=== PATIENT | female | born 2000 | race Caucasian/White ===

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

== ENCOUNTER 2021-11-17 23:18 | Emergency (ER) | payer MEDICAID ==
[~2021-11-17] VITALS: Ht 157 cm; Wt 61.5 kg
[~2021-11-17 23:18] MED LIST changes: +DOCU-239 PO; +LABE200T10 PO; -LABE200T7 PO
[2021-11-17 23:41] LABS: BILIRUBIN,URINE NEGATIVE (NEGATIVE); CLARITY,URINE CLEAR; COLOR,URINE ORANGE; GLUCOSE, URINE (UA) NEGATIVE (NEGATIVE); KETONES,URINE NEGATIVE (NEGATIVE); LEUKOCYTE ESTERASE ,URINE 2+ (NEGATIVE); NITRITE,URINE NEGATIVE (NEGATIVE); PROTEIN,URINE 1+ (NEGATIVE)
[2021-11-17 23:42] LABS: BASOPHILS % (AUTO) 0 % (0-10); EOSINOPHILS # (AUTO) 0.2 10^3/uL (0.0-0.3); EOSINOPHILS % (AUTO) 2 % (0-10); HEMATOCRIT 39 % (35-52); HEMOGLOBIN 11.8 g/dL (11.5-16.0); LYMPHOCYTES # (AUTO) 2.9 10^3/uL (1.0-4.0); LYMPHOCYTES % (AUTO) 26 % (12-44); MEAN CORPUSCULAR HEMOGLOBIN 24 pg (25-34); MEAN CORPUSCULAR HGB CONC 31 g/dL (32-36); MEAN CORPUSCULAR VOLUME 79 fL (80-99); MEAN PLATELET VOLUME 10.9 fL (9.0-12.2); MONOCYTES # (AUTO) 0.8 10^3/uL (0.0-1.0); MONOCYTES % (AUTO) 7 % (0-12); NEUTROPHILS # (AUTO) 7.2 10^3/uL (1.8-7.8); NEUTROPHILS % (AUTO) 64 % (42-75); PLATELET COUNT 269 10^3/uL (130-400); WHITE BLOOD COUNT 11.2 10^3/uL (4.3-11.0)
--- NOTE | 2021-11-17 23:44 | ED GU-Female ---
General Chief Complaint: OB > 20 WEEKS Stated Complaint: MONTH 1/2 PREG,VAG BLEEDING,CRAMPS,LOWER BACK PAIN Source: patient History of Present Illness Date Seen by Provider: Nov 17, 2021 Time Seen by Provider: 23:30 Initial Comments PT ARRIVES VIA POV FROM HOME PT STATES SHE IS --LMP 09/11/21, WITH + HOME TEST----9 WEEKS BY LMP. HAS NOT SEEN ANYONE FOR THIS AND DOES NOT HAVE ANY APPOINTMENTS SCHEDULED STATES SHE WORKS AT [employer]--STARTED WORKING THERE IN JULY OF THIS YEAR. ON THURSDAY, SHE STARTED DOING A DIFFERENT JOB THERE--LIFTING 30# PIECES OF PORK BELLY--DID THIS FOR 30 MINUTES ON THURSDAY AND THURSDAY BEGAN HAVING LOW BACK PAIN AFTER DOING THIS ON THURSDAY AND HAD SOME BRIEF SHARP LOW ABDOMINAL PAINS SOON SHE FINISHED DOING THIS ON THURSDAY WELL HAS HAD CONTINUED LOWER BACK PAIN SINCE THEN HAD NOT HAD ANY LOWER ABDOMINAL PAIN/CRAMPING UNTIL TONIGHT--BEGAN ABOUT 30 MINUTES AGO, AND SHE STARTED HAVING VAGINAL BLEEDING 30 MINUTES AGO AND RUSHED HERE SHE HAS NOT USED ANY PADS YET--PUT ON HER FIRST PAD, PRIOR TO ARRIVAL, AND THERE IS NO BLOOD ON IT. NO URINARY SYMPTOMS + NAUSEA, NO VOMITING HAD NORMAL BM TODAY NO VAGINAL DISCHARGE PRIOR TO THE BLEEDING PT IS AB 0--FIRST PREGANCY WAS FOR HTN, AND HAD REPEAT AND PRE-ECLAMPSIA WITH THAT WELL. NO CHRONIC MEDICAL PROBLEMS PCP: [facility]: DR. FORDE Allergies and Home Medications Allergies Coded Allergies: No Known Drug Allergies (Unverified , 09/08/18) Patient Home Medication List Home Medication List Reviewed: Yes Docusate Sodium (Dok) 100 Mg Capsule, 100 MG PO BID PRN for CONSTIPATION-1ST LINE Prescribed by: RODDY FORDE on 04/05/201915 Doxylamine/Pyridoxine HCl (Edmundo Amezcua 10-10 mg Tablet) 10 Mg-10 Mg Tablet., 2 EACH PO HS Prescribed by: KENDELL MATHEWS on 11/18/21 0011 Hydrocodone Bit/Acetaminophen (HYDROcodone/APAP 5 MG/325 MG TAB) 1 Tab Tab, 1-2 TAB PO Q6HR PRN for PAIN-MODERATE (5-7) Prescribed by: RODDY FORDE on 04/05/201916 Ibuprofen (Ibu) 600 Mg Tablet, 600 MG PO Q6HR Prescribed by: RODDY FORDE on 04/05/201915 Iron (Iron) 18 Mg Tablet, 18 MG PO DAILY, (Reported) Entered as Reported by: BEA RAMÍREZ on 03/23/20 165 Nitrofurantoin Monohyd/M-Cryst (Macrobid 100 mg Capsule) 100 Mg Capsule, 1 TAB PO BID Prescribed by: KENDELL MATHEWS on 11/18/2110 Pgs077/Iron Fumarate/FA/Dss ( 19 Tablet) 1 Each Tablet, 1 EACH PO DAILY, (Reported) Entered as Reported by: ARIC STONER on 09/08/182037 Vit W-Ca,Fe,FA(<1 mg) ( Formula) 28 Mg Iron-800 Mcg Tablet, 1 EACH PO DAILY Prescribed by: KENDELL MATHEWS on 11/18/2110 Review of Systems Review of Systems Constitutional: no symptoms reported Respiratory: no symptoms reported Cardiovascular: no symptoms reported Gastrointestinal: see HPI Genitourinary: see HPI : Yes LMP: Sep 11, 2021 Musculoskeletal: see HPI Skin: no symptoms reported Psychiatric/Neurological: No Symptoms Reported Endocrine: No Symptoms Reported Hematologic/Lymphatic: No Symptoms Reported Past Iderzvl-Lcomty-Fpwbkz Hx Patient Social History Tobacco Use?: No Smoking Status: Never a Smoker Smokeless Tobacco Frequency: Never a User Use of E-Cig and/or Vaping dev: No Use of E-Cig and/or Vaping Christian: Never a User Substance use?: No Alcohol Use?: No Seasonal Allergies Seasonal Allergies: No Past Medical History Surgeries: Yes ( X 2) Section Respiratory: No Currently Using CPAP: No Currently Using BIPAP: No Cardiac: Yes ( INDUCED HTN/PRE-ECLAMPSIA) Neurological: No : Yes Last Menstrual Period: Sep 11, 2021 Hx : 3 Hx Para: 2 Hx Total # of Abortions (Sp): 0 Reproductive Disorders: No Genitourinary: No Gastrointestinal: No Musculoskeletal: No Endocrine: No HEENT: No Cancer: No Psychosocial: No Integumentary: No Blood Disorders: No Family Medical History Asthma G8 BROTHER FH: lupus G8 SISTER Hypertension 19 MOTHER Physical Exam Vital Signs Vital Signs - First Documented 11/17/21 23:34 Temp 36.9 Pulse 92 Resp 20 B/P (MAP) 128/83 (98) Pulse Ox 98 O2 Delivery Room Air Capillary Refill : Height, Weight, BMI Height: 5'2.00" Weight: 176lbs. 0.0oz. [id number]; 32.69 BMI Method: General Appearance: WD/WN, no apparent distress Cardiovascular: regular rate, rhythm, no murmur Respiratory: normal breath sounds, no respiratory distress, no accessory muscle use Gastrointestinal: normal bowel sounds, non tender, soft, no organomegaly Pelvic: normal external exam, normal adnexa, no cerv. motion tender, no masses; No lesions, No tender adnexa, No tender uterus; vaginal bleeding (MILD AMOUNT OF BLOOD IN CANAL. NO CLOTS, NO ACTIVE BLEEDING FROM CERVIX AT THIS TIME. CERVIX IS CLOSED) Back: no CVA tenderness Extremities: normal range of motion, non-tender, normal inspection, no pedal edema, no calf tenderness Neurologic/Psychiatric: security director II-XII nml as tested, no motor/sensory deficits, alert, normal mood/affect, oriented x 3 Skin: normal color, warm/dry Progress/Results/Core Measures Suspected Sepsis SIRS Temperature: Pulse: Respiratory Rate: Laboratory Tests 11/17/21 23:32: White Blood Count 11.2H Blood Pressure / Mean: Laboratory Tests 11/17/21 23:32: Platelet Count 269 Results/Orders Lab Results Laboratory Tests Test 11/17/21 23:32 Range/Units White Blood Count 11.2 H 4.3-11.0 10^3/uL Red Blood Count 4.89 3.80-5.11 10^6/uL Hemoglobin 11.8 11.5-16.0 g/dL Hematocrit 39 35-52 % Mean Corpuscular Volume 79 L 80-99 fL Mean Corpuscular Hemoglobin 24 L 25-34 pg Mean Corpuscular Hemoglobin Concent 31 L 32-36 g/dL Red Cell Distribution Width 14.8 H 10.0-14.5 % Platelet Count 269 130-400 10^3/uL Mean Platelet Volume 10.9 9.0-12.2 fL Immature Granulocyte % (Auto) 0 % Neutrophils (%) (Auto) 64 42-75 % Lymphocytes (%) (Auto) 26 12-44 % Monocytes (%) (Auto) 7 0-12 % Eosinophils (%) (Auto) 2 0-10 % Basophils (%) (Auto) 0 0-10 % Neutrophils # (Auto) 7.2 1.8-7.8 10^3/uL Lymphocytes # (Auto) 2.9 1.0-4.0 10^3/uL Monocytes # (Auto) 0.8 0.0-1.0 10^3/uL Eosinophils # (Auto) 0.2 0.0-0.3 10^3/uL Basophils # (Auto) 0.0 0.0-0.1 10^3/uL Immature Granulocyte # (Auto) 0.1 0.0-0.1 10^3/uL Urine Color ORANGE Urine Clarity CLEAR Urine pH 7.0 5-9 Urine Specific [place] 1.020 1.016-1.022 Urine Protein 1+ H NEGATIVE Urine Glucose (UA) NEGATIVE NEGATIVE Urine Ketones NEGATIVE NEGATIVE Urine Nitrite NEGATIVE NEGATIVE Urine Bilirubin NEGATIVE NEGATIVE Urine Urobilinogen 0.2 < = 1.0 MG/DL Urine Leukocyte Esterase 2+ H NEGATIVE Urine RBC (Auto) 3+ H NEGATIVE Urine RBC 50-100 H /HPF Urine WBC 10-25 H /HPF Urine Squamous Epithelial Cells 2-5 /HPF Urine Crystals NONE /LPF Urine Bacteria FEW H /HPF Urine Casts NONE /LPF Urine Mucus NEGATIVE /LPF Urine Culture Indicated YES Human Chorionic Gonadotropin, Quant 5051 H <5 MIU/ML My Orders Orders - KENDELL MATHEWS DO Ed Iv/Invasive Line Start (11/17/21 23:27) Monitor-Rhythm Ecg Trace Only (11/17/21 23:27) Cbc With Automated Diff (11/17/21 23:27) Hcg,Quantitative (11/17/21 23:27) Urine Bedside (11/17/21 23:27) Ua Culture If Indicated (11/17/21 23:27) Urine Culture (11/17/21 23:32) Rx-Nitrofurantoin Addison (Rx-Macrobid) (11/18/21 00:13) Rx-Nitrofurantoin [place]ison (Rx-Macrobid) (11/18/21 00:16) Vital Signs/I&O 11/17/21 11/18/21 23:34 00:20 Temp 36.9 36.9 Pulse 92 82 Resp 20 18 B/P (MAP) 128/83 (98) 117/80 Pulse Ox 98 99 O2 Delivery Room Air Room Air Capillary Refill : Progress Note : Progress Note BLOOD TYPE IS AB+ DID NOT SOAK ANY PADS DURING ER STAY VITALS STABLE NO CRAMPING OR PAIN DURING ER STAY ANTICIPATED COURSE AND RETURN PRECAUTIONS DISCUSSED WITH PT Departure Impression Primary Impression: Threatened miscarriage in early Additional Impression: UTI IN EARLY Disposition: 01 HOME, SELF-CARE Condition: Stable Departure-Patient Inst. Decision time for Depature: 00:10 Referrals: RODDY FORDE DO (PCP/Family) Primary Care Physician Patient Instructions: Bleeding in Early (DC), Urinary Tract Infection, Child (DC) Add. Discharge Instructions: NOTHING IN VAGINA--NO TAMPONS, DOUCHING OR INTERCOURSE LOTS OF CLEAR LIQUIDS--WATER, BROTH, JELLO, GATORADE TYLENOL NEEDED FOR PAIN FOLLOW UP WITH [facility] T[facility]ROW FOR FURTHER CARE RETURN TO ER IF YOU ARE SOAKING MORE THAN 1 MAXI PAD AN HOUR, OR YOUR PAIN BECOMES MUCH WORSE All discharge instructions reviewed with patient and/or family. Voiced understanding. Scripts Doxylamine/Pyridoxine HCl (Edmundo Amezcua 10-10 mg Tablet) 10 Mg-10 Mg Tablet.dr 2 EACH PO HS, #60 TAB Prov: KENDELL MATHEWS DO 11/18/21 Vit W-Ca,Fe,FA(<1 mg) ( Formula) 28 Mg Iron-800 Mcg Tablet 1 EACH PO DAILY, #90 TAB Prov: KENDELL MATHEWS DO 11/18/21 Nitrofurantoin Monohyd/M-Cryst (Macrobid 100 mg Capsule) 100 Mg Capsule 1 TAB PO BID, #20 CAP Prov: KENDELL MATHEWS DO 11/18/21 KENDELL MATHEWS DO Nov 17, 2021 23:44
[2021-11-17 23:49] LABS: BACTERIA,URINE FEW /HPF; RBC,URINE 50-100 /HPF
[2021-11-18] MEDS ORDERED: NITR-65 PO (00:11)
[2021-11-18] MEDS ORDERED: DOXY1TAB3 PO (00:11)
[2021-11-18] MEDS ORDERED: PREN-8 PO (00:11)
[2021-11-18] MEDS ORDERED: RX-NITROFURANTOIN 100 MG (MACROBID) CAP PPK#2 PO STA (00:13)
[2021-11-18] MEDS ORDERED: RX-NITROFURANTOIN 100 MG (MACROBID) CAP PPK#2 PO ONE (00:16)
[2021-11-18 00:20] VITALS: BP 117/80
[2021-11-19] MEDS ORDERED: IBUP-1780 PO (16:01)
== END 2021-11-18 00:20 | disposition home or self-care (01) ==
LOC: EDUNIT# 23:18 → ER 23:21
DX: O20.0 Threatened abortion (principal); O23.41 Unspecified infection of urinary tract in pregnancy, first trimester; N39.0 Urinary tract infection, site not specified; Z3A.09 9 weeks gestation of pregnancy; Z28.310 Unvaccinated for COVID-19
CPT/HCPCS: 36415; 81000; 84702; 84703; 85025; 87088

== ENCOUNTER 2021-11-19 11:00 | Emergency (ER) | payer MEDICAID ==
[~2021-11-19] VITALS: Ht 157.5 cm; Wt 61.2 kg
[~2021-11-19 11:00] MED LIST changes: +DOXY1TAB3 PO; +NITR-65 PO; +PREN-8 PO
[2021-11-19 11:24] LABS: BASOPHILS % (AUTO) 0 % (0-10); EOSINOPHILS % (AUTO) 0 % (0-10); HEMATOCRIT 37 % (35-52); HEMOGLOBIN 11.4 g/dL (11.5-16.0); LYMPHOCYTES # (AUTO) 1.2 10^3/uL (1.0-4.0); LYMPHOCYTES % (AUTO) 9 % (12-44); MEAN CORPUSCULAR HEMOGLOBIN 24 pg (25-34); MEAN CORPUSCULAR HGB CONC 31 g/dL (32-36); MEAN CORPUSCULAR VOLUME 78 fL (80-99); MONOCYTES # (AUTO) 0.7 10^3/uL (0.0-1.0); MONOCYTES % (AUTO) 5 % (0-12); NEUTROPHILS # (AUTO) 11.4 10^3/uL (1.8-7.8); NEUTROPHILS % (AUTO) 85 % (42-75); PLATELET COUNT 245 10^3/uL (130-400); WHITE BLOOD COUNT 13.4 10^3/uL (4.3-11.0)
[2021-11-19] MEDS ORDERED: fentaNYL INJ 100 MCG/2 ML AMP IVP ONE (11:30)
[2021-11-19 11:37] LABS: BILIRUBIN,URINE NEGATIVE (NEGATIVE); CLARITY,URINE CLEAR; COLOR,URINE YELLOW; GLUCOSE, URINE (UA) NEGATIVE (NEGATIVE); KETONES,URINE NEGATIVE (NEGATIVE); LEUKOCYTE ESTERASE ,URINE NEGATIVE (NEGATIVE); NITRITE,URINE NEGATIVE (NEGATIVE); PROTEIN,URINE 1+ (NEGATIVE)
[2021-11-19 11:40] LABS: ALBUMIN 4.5 GM/DL (3.2-4.5); POTASSIUM 3.4 MMOL/L (3.6-5.0)
[2021-11-19 11:41] LABS: CALCIUM 9.2 MG/DL (8.5-10.1)
[2021-11-19 11:42] LABS: TOTAL PROTEIN 7.9 GM/DL (6.4-8.2)
[2021-11-19 11:44] LABS: BILIRUBIN,TOTAL 0.4 MG/DL (0.1-1.0)
[2021-11-19 11:46] LABS: CREATININE SERUM 0.56 MG/DL (0.60-1.30)
[2021-11-19 11:48] LABS: BACTERIA,URINE TRACE /HPF; RBC,URINE TNTC /HPF
--- NOTE | 2021-11-19 11:58 | ED Abdominal Pain ---
General Chief Complaint: OB < 20 WEEKS Stated Complaint: ABD PAIN Nursing Triage Note: PT AMB TO RM 9 WITH COMPLAINT OF LOWER ABD PAIN AND MISCARRIAGE. STATES WENT TO CLINIC TODAY AND HAD ULTRASOUND AND CONFIRMED SHE WAS MISCARRYING AND THERE WAS NOT HEARTRATE. Source of Information: Patient Exam Limitations: No Limitations History of Present Illness Date Seen by Provider: Nov 19, 2021 Time Seen by Provider: 11:54 Initial Comments This is a 21 yo female who presented to the ER via POV with c/o abdominal Allergies and Home Medications Allergies Coded Allergies: No Known Drug Allergies (Unverified , 09/08/18) Patient Home Medication List Docusate Sodium (Dok) 100 Mg Capsule, 100 MG PO BID PRN for CONSTIPATION-1ST LINE Prescribed by: RODDY FORDE on 04/05/201915 Doxylamine/Pyridoxine HCl (Diclegis Dr 10-10 mg Tablet) 10 Mg-10 Mg Tablet.dr, 2 EACH PO HS Prescribed by: KENDELL MATHEWS on 11/18/2110 Hydrocodone Bit/Acetaminophen (HYDROcodone/APAP 5 MG/325 MG TAB) 1 Tab Tab, 1-2 TAB PO Q6HR PRN for PAIN-MODERATE (5-7) Prescribed by: RODDY FORDE on 04/05/201916 Ibuprofen (Ibu) 600 Mg Tablet, 600 MG PO Q6HR Prescribed by: RODDY FORDE on 04/05/201915 Iron (Iron) 18 Mg Tablet, 18 MG PO DAILY, (Reported) Entered as Reported by: BEA RAMÍREZ on 03/23/20 165 Nitrofurantoin Monohyd/M-Cryst (Macrobid 100 mg Capsule) 100 Mg Capsule, 1 TAB PO BID Prescribed by: KENDELL MATHEWS on 11/18/2110 [id number]/Iron Fumarate/FA/Dss ( 19 Tablet) 1 Each Tablet, 1 EACH PO DAILY, (Reported) Entered as Reported by: ARIC STONER on 09/08/182037 Vit W-Ca,Fe,FA(<1 mg) ( Formula) 28 Mg Iron-800 Mcg Tablet, 1 EACH PO DAILY Prescribed by: KENDELL MATHEWS on 11/18/2110 Past Clrjbpy-Hskjow-Ltrmeq Hx Patient Social History Tobacco Use?: No Use of E-Cig and/or Vaping dev: No Substance use?: No Alcohol Use?: No Pt feels they are or have been: No Immunizations Up To Date First/Initial COVID19 Vaccinat: N/A Second COVID19 Vaccination Giovani: N/A Third COVID19 Vaccination Date: N/A Seasonal Allergies Seasonal Allergies: No Past Medical History Surgery/Hospitalization HX: HX OF HTN Surgeries: Yes ( X 2) Section Respiratory: No Currently Using CPAP: No Currently Using BIPAP: No Cardiac: Yes ( INDUCED HTN/PRE-ECLAMPSIA) Neurological: No Reproductive Disorders: No Genitourinary: No Gastrointestinal: No Musculoskeletal: No Endocrine: No HEENT: No Cancer: No Psychosocial: No Integumentary: No Blood Disorders: No Family Medical History Asthma G8 BROTHER FH: lupus G8 SISTER Hypertension 19 MOTHER Physical Exam Vital Signs Vital Signs - First Documented 11/19/21 11:07 Pulse 86 Resp 16 B/P (MAP) 146/87 (106) Pulse Ox 99 O2 Delivery Room Air Capillary Refill : Less Than 3 Seconds Height/Weight/BMI Height: 5'2.00" Weight: 176lbs. 0.0oz. 79.775564cp; 24.00 BMI Method: Progress/Results/Core Measures Results/Orders Lab Results Laboratory Tests Test 11/19/21 11:15 11/19/21 11:27 Range/Units White Blood Count 13.4 H 4.3-11.0 10^3/uL Red Blood Count 4.75 3.80-5.11 10^6/uL Hemoglobin 11.4 L 11.5-16.0 g/dL Hematocrit 37 35-52 % Mean Corpuscular Volume 78 L 80-99 fL Mean Corpuscular Hemoglobin 24 L 25-34 pg Mean Corpuscular Hemoglobin Concent 31 L 32-36 g/dL Red Cell Distribution Width 14.6 H 10.0-14.5 % Platelet Count 245 130-400 10^3/uL Mean Platelet Volume 11.0 9.0-12.2 fL Immature Granulocyte % (Auto) 0 % Neutrophils (%) (Auto) 85 H 42-75 % Lymphocytes (%) (Auto) 9 L 12-44 % Monocytes (%) (Auto) 5 0-12 % Eosinophils (%) (Auto) 0 0-10 % Basophils (%) (Auto) 0 0-10 % Neutrophils # (Auto) 11.4 H 1.8-7.8 10^3/uL Lymphocytes # (Auto) 1.2 1.0-4.0 10^3/uL Monocytes # (Auto) 0.7 0.0-1.0 10^3/uL Eosinophils # (Auto) 0.0 0.0-0.3 10^3/uL Basophils # (Auto) 0.0 0.0-0.1 10^3/uL Immature Granulocyte # (Auto) 0.1 0.0-0.1 10^3/uL Sodium Level 139 135-145 MMOL/L Potassium Level 3.4 L 3.6-5.0 MMOL/L Chloride Level 106 98-107 MMOL/L Carbon Dioxide Level 18 L 21-32 MMOL/L Anion Gap 15 H 5-14 MMOL/L Blood Urea Nitrogen 10 7-18 MG/DL Creatinine 0.56 L 0.60-1.30 MG/DL Estimat Glomerular Filtration Rate 134 BUN/Creatinine Ratio 18 Glucose Level 101 70-105 MG/DL Calcium Level 9.2 8.5-10.1 MG/DL Corrected Calcium 8.8 8.5-10.1 MG/DL Total Bilirubin 0.4 0.1-1.0 MG/DL Aspartate Amino Transf (AST/SGOT) 22 5-34 U/L Alanine Aminotransferase (ALT/SGPT) 18 0-55 U/L Alkaline Phosphatase 58 40-136 U/L Total Protein 7.9 6.4-8.2 GM/DL Albumin 4.5 3.2-4.5 GM/DL Human Chorionic Gonadotropin, Quant 2312 H <5 MIU/ML Serum Test, Qualitative POSITIVE NEGATIVE Urine Color YELLOW Urine Clarity CLEAR Urine pH 6.0 5-9 Urine Specific [place] >=1.030 1.016-1.022 Urine Protein 1+ H NEGATIVE Urine Glucose (UA) NEGATIVE NEGATIVE Urine Ketones NEGATIVE NEGATIVE Urine Nitrite NEGATIVE NEGATIVE Urine Bilirubin NEGATIVE NEGATIVE Urine Urobilinogen 0.2 < = 1.0 MG/DL Urine Leukocyte Esterase NEGATIVE NEGATIVE Urine RBC (Auto) 3+ H NEGATIVE Urine RBC TNTC H /HPF Urine WBC NONE /HPF Urine Squamous Epithelial Cells 2-5 /HPF Urine Crystals NONE /LPF Urine Bacteria TRACE /HPF Urine Casts NONE /LPF Urine Mucus MODERATE H /LPF Urine Culture Indicated NO My Orders Orders - DIANA,STORMY D MARINE RAILWAY OPERATOR Ua Culture If Indicated (11/19/21 11:07) Hcg,Qualitative Serum (11/19/21 11:07) Cbc With Automated Diff (11/19/21 11:07) Comprehensive Metabolic Panel (11/19/21 11:07) Fentanyl Inj (Sublimaze Injection) (11/19/21 11:30) Hcg,Quantitative (11/19/21 12:03) Ketorolac Injection (Toradol Injection) (11/19/21 12:45) Us Ob<14 Wks Sngle W/Transvag (11/19/21 13:28) Medications Given in ED Current Medications Medications Dose Ordered Sig/Moises Route Start Time Stop Time Status Last Admin Dose Admin Fentanyl Citrate 50 mcg ONCE ONCE IVP 11/19/21 11:30 11/19/21 11:31 DC 11/19/21 11:36 50 MCG Ketorolac Tromethamine 30 mg ONCE ONCE IVP 11/19/21 12:45 11/19/21 12:46 DC 11/19/21 12:46 30 MG Vital Signs/I&O 11/19/21 11:07 Pulse 86 Resp 16 B/P (MAP) 146/87 (106) Pulse Ox 99 O2 Delivery Room Air Blood Pressure Mean: 106 Departure Impression Primary Impression: Threatened miscarriage in early Disposition: 01 HOME, SELF-CARE Condition: Stable Departure-Patient Inst. Decision time for Depature: 15:59 Referrals: [facility] [place] [facility] [place] (PCP/Family) Primary Care Physician Patient Instructions: Threatened Miscarriage (DC) Add. Discharge Instructions: Plan: 1. Take ibuprofen 800 mg by mouth every 8 hours for pain. 2. May take Tylenol 1000mg by mouth ever 8 hours for pain. 3. keep follow-up with Nia as planned tomorrow. 4. Return to the ER if you develop any increased bleeding, pain, lightheaded ness, dizziness, any other new or concerning symptoms. All discharge instructions reviewed with patient and/or family. Voiced u nderstanding. Scripts Ibuprofen (Ibuprofen) 800 Mg Tablet 800 MG PO Q8H PRN for PAIN, #14 TAB 0 Refills Prov: ADRIEN ORTIZ MARINE RAILWAY OPERATOR 11/19/21 ADRIEN ORTIZ MARINE RAILWAY OPERATOR Nov 19, 2021 11:58
[2021-11-19] MEDS ORDERED: KETOROLAC 30 MG/ML VIAL IVP ONE (12:45)
--- NOTE | 2021-11-19 14:59 | Diagnostic Imaging Report ---
INDICATION: Vaginal bleeding. Cramping. Positive test. COMPARISON: None. TECHNIQUE: Transvaginal sonogram was performed. FINDINGS: Single intrauterine gestational sac is identified and contains a pole. Revere-rump length measures 1.7 cm in length. This is consistent with an 8-week and 1-day-old gestational. Despite this, heartbeat cannot be adequately identified. Yolk sac cannot be adequately identified. Additionally, gestational sac has somewhat irregular appearance. Note is made of small amount of debris within the endocervical canal. No adnexal masses or free fluid are seen. Left ovary is not well visualized due to positioning. Right ovary has a normal sonographic appearance and measures 2.2 x 1.3 x 2 cm. CLINICAL DATES: 10 weeks and 5 days with estimated date of delivery of 06/12/2022. IMPRESSION: 1. Intrauterine gestational sac with a pole is identified, but there is no demonstrable heartbeat. Additionally, size measurements of today's exam are disconcordant with provided clinical dates. Findings raise suspicion for failed . Correlation with serial beta-hCG is recommended. If indicated, short interval sonographic follow-up could be performed. 2. Small amount of free fluid within the cul-de-sac. 3. No sonographic evidence of extrauterine . Dictated by: Dictated on workstation # [id number]
[2021-11-19] MEDS ORDERED: IBUP-1780 PO (16:01)
[2021-11-19 16:05] VITALS: BP 132/80
== END 2021-11-19 16:10 | disposition home or self-care (01) ==
LOC: EDUNIT# 11:00 → ER 11:01
DX: O20.0 Threatened abortion (principal); Z3A.00 Weeks of gestation of pregnancy not specified; Z28.310 Unvaccinated for COVID-19
CPT/HCPCS: 36415; 76801; 76817; 80053; 81000; 84702; 84703; 85025

== ENCOUNTER 2022-10-10 00:16 | Emergency (ER) | payer MEDICAID ==
[~2022-10-10] VITALS: Ht 157.5 cm; Wt 68.0 kg
[~2022-10-10 00:16] MED LIST changes: +IBUP-1780 PO
[2022-10-10 00:53] LABS: BASOPHILS % (AUTO) 1 % (0-10); EOSINOPHILS # (AUTO) 0.1 10^3/uL (0.0-0.3); EOSINOPHILS % (AUTO) 2 % (0-10); HEMATOCRIT 33 % (35-52); HEMOGLOBIN 9.6 g/dL (11.5-16.0); LYMPHOCYTES # (AUTO) 2.4 10^3/uL (1.0-4.0); LYMPHOCYTES % (AUTO) 28 % (12-44); MEAN CORPUSCULAR HEMOGLOBIN 22 pg (25-34); MEAN CORPUSCULAR HGB CONC 29 g/dL (32-36); MEAN CORPUSCULAR VOLUME 73 fL (80-99); MEAN PLATELET VOLUME 10.1 fL (9.0-12.2); MONOCYTES # (AUTO) 0.6 10^3/uL (0.0-1.0); MONOCYTES % (AUTO) 7 % (0-12); NEUTROPHILS # (AUTO) 5.4 10^3/uL (1.8-7.8); NEUTROPHILS % (AUTO) 62 % (42-75); PLATELET COUNT 284 10^3/uL (130-400); WHITE BLOOD COUNT 8.6 10^3/uL (4.3-11.0)
[2022-10-10 00:56] LABS: CLARITY,URINE CLEAR; COLOR,URINE YELLOW; GLUCOSE, URINE (UA) NEGATIVE (NEGATIVE); KETONES,URINE NEGATIVE (NEGATIVE); PROTEIN,URINE TRACE (NEGATIVE)
[2022-10-10 00:57] LABS: BACTERIA,URINE NEGATIVE /HPF; BILIRUBIN,URINE NEGATIVE (NEGATIVE); LEUKOCYTE ESTERASE ,URINE TRACE (NEGATIVE); NITRITE,URINE NEGATIVE (NEGATIVE); WBC,URINE RARE /HPF
[2022-10-10 01:02] LABS: POTASSIUM 3.5 MMOL/L (3.6-5.0)
[2022-10-10 01:03] LABS: CALCIUM 8.7 MG/DL (8.5-10.1)
[2022-10-10 01:07] LABS: CREATININE SERUM 0.6 MG/DL (0.60-1.30)
--- NOTE | 2022-10-10 02:24 | ED GU-Female ---
General Chief Complaint: OB < 20 WEEKS Stated Complaint: ABD PX,BACK PX,10 WKS PREG(4TH PREG) Nursing Triage Note: REPORTS WAKING UP APPROX. 2330 WITH VAGINAL BLEEDING, RIGHT MIDDLE/LOWER BACK PAIN, ABDOMINAL CRAMPING. LMP 07/14/22 REPORTS BEING 10 WEEKS . Source: patient History of Present Illness Date Seen by Provider: Oct 10, 2022 Time Seen by Provider: 00:30 Initial Comments PT ARRIVES VIA POV FROM HOME WITH MALE S.O. PT STATES SHE IS 10 WEEKS , WITH LMP 07/14/22 SHE HAD NURSE VISIT AND LABS DONE ON THURSDAY. SHE STATES SHE WAS TOLD SHE WAS ANEMIC. SHE HAS NOT HAD AN ULTRASOUND YET SHE HAS HER FIRST OB APPOINTMENT WITH DR. FORDE ON 10/20/22 AND IS SUPPOSED TO HAVE AN ULTRASOUND THEN PT IS AB 1--MISCARRIAGE IN FIRST TRIMESTER 8-9 MONTHS AGO. NO D&C. SHE HAS HAD 2 C-SECTIONS SHE BEGAN HAVING MID LOWER ABDOMINAL PAIN AND MID LOWER BACK PAIN LAST NIGHT. SHE WOKE UP AT 2330 WITH BLEEDING AND CAME STRAIGHT HERE SHE HAS NOT USED ANY PADS OR TAMPONS. SHE HAS MILD NAUSEA, NO VOMITING. NO CHRONIC MEDICAL PROBLEMS Allergies and Home Medications Allergies Coded Allergies: No Known Drug Allergies (Unverified , 09/08/18) Patient Home Medication List Home Medication List Reviewed: Yes Discontinued Medications Docusate Sodium (Dok) 100 Mg Capsule, 100 MG PO BID PRN for CONSTIPATION-1ST LINE Discontinued Reason: No Longer Taking Prescribed by: RODDY FORDE on 04/05/201915 Last Action: Discontinued Doxylamine/Pyridoxine HCl (Edmundo Amezcua 10-10 mg Tablet) 10 Mg-10 Mg Tablet., 2 EACH PO HS Discontinued Reason: No Longer Taking Prescribed by: KENDELL MATHEWS on 11/18/21 0011 Last Action: Discontinued Hydrocodone Bit/Acetaminophen (HYDROcodone/APAP 5 MG/325 MG TAB) 1 Tab Tab, 1-2 TAB PO Q6HR PRN for PAIN-MODERATE (5-7) Discontinued Reason: No Longer Taking Prescribed by: RODDY FORDE on 04/05/201916 Last Action: Discontinued Ibuprofen (Ibu) 600 Mg Tablet, 600 MG PO Q6HR Discontinued Reason: No Longer Taking Prescribed by: RODDY FORDE on 04/05/201915 Last Action: Discontinued Ibuprofen (Ibuprofen) 800 Mg Tablet, 800 MG PO Q8H PRN for PAIN Discontinued Reason: No Longer Taking Prescribed by: ADRIEN ORTIZ on 11/19/21 1601 Last Action: Discontinued Iron (Iron) 18 Mg Tablet, 18 MG PO DAILY, (Reported) Discontinued Reason: No Longer Taking Entered as Reported by: BEA RAMÍREZ on 03/23/20 1650 Last Action: Discontinued Nitrofurantoin Monohyd/M-Cryst (Macrobid 100 mg Capsule) 100 Mg Capsule, 1 TAB PO BID Discontinued Reason: No Longer Taking Prescribed by: KENDELL MATHEWS on 11/18/2110 Last Action: Discontinued Ivs768/Iron Fumarate/FA/Dss ( 19 Tablet) 1 Each Tablet, 1 EACH PO DAILY, (Reported) Discontinued Reason: No Longer Taking Entered as Reported by: ARIC STONER on 09/08/182037 Last Action: Discontinued Vit W-Ca,Fe,FA(<1 mg) ( Formula) 28 Mg Iron-800 Mcg Tablet, 1 EACH PO DAILY Discontinued Reason: No Longer Taking Prescribed by: KENDELL MATHEWS on 11/18/2110 Last Action: Discontinued Review of Systems Review of Systems Constitutional: no symptoms reported; No chills, No diaphoresis, No dizziness, No fever EENTM: no symptoms reported Respiratory: no symptoms reported Cardiovascular: no symptoms reported Gastrointestinal: see HPI Genitourinary: see HPI : Yes LMP: July 14, 2022 Musculoskeletal: see HPI Skin: no symptoms reported Psychiatric/Neurological: No Symptoms Reported Endocrine: No Symptoms Reported Hematologic/Lymphatic: No Symptoms Reported Past Zxlkpna-Jiftrb-Dvoalt Hx Patient Social History Tobacco Use?: No Substance use?: No Alcohol Use?: No Pt feels they are or have been: No Immunizations Up To Date First/Initial COVID19 Vaccinat: NA Second COVID19 Vaccination Giovani: N/A Third COVID19 Vaccination Date: N/A Seasonal Allergies Seasonal Allergies: No Past Medical History Surgery/Hospitalization HX: C-SECT X2, ANEMIA Surgeries: Yes ( X 2) Section Respiratory: No Currently Using CPAP: No Currently Using BIPAP: No Cardiac: Yes ( INDUCED HTN/PRE-ECLAMPSIA) Neurological: No : Yes Last Menstrual Period: July 14, 2022 Hx : 4 Hx Para: 2 Hx Total # of Abortions (Sp): 1 Reproductive Disorders: No Genitourinary: No Gastrointestinal: No Musculoskeletal: No Endocrine: No HEENT: No Cancer: No Psychosocial: No Integumentary: No Blood Disorders: Yes (ANEMIA) Family Medical History Asthma G8 BROTHER FH: lupus G8 SISTER Hypertension 19 MOTHER X 2--2018 AND 2020 Physical Exam Vital Signs Vital Signs - First Documented 10/10/22 00:27 Temp 36.5 Pulse 79 Resp 16 B/P (MAP) 116/65 (82) Pulse Ox 100 O2 Delivery Room Air Capillary Refill : Less Than 3 Seconds Height, Weight, BMI Height: 5'2.00" Weight: 176lbs. 0.0oz. 79.695196ha; 27.00 BMI Method: General Appearance: WD/WN, no apparent distress HEENT: PERRL/EOMI; No pale conjunctivae (R), No pale conjunctivae (L) Neck: normal inspection Cardiovascular: regular rate, rhythm, no murmur Respiratory: normal breath sounds, no respiratory distress, no accessory muscle use Gastrointestinal: normal bowel sounds, soft, tenderness (MILD SUPRAPUBIC TENDERNESS) Back: no CVA tenderness Extremities: normal inspection, normal capillary refill Neurologic/Psychiatric: no motor/sensory deficits, alert, normal mood/affect, oriented x 3 Skin: normal color (), warm/dry Progress/Results/Core Measures Suspected Sepsis SIRS Temperature: Pulse: 79 Respiratory Rate: 16 Laboratory Tests 10/10/22 00:41: White Blood Count 8.6 Blood Pressure 116 /65 Mean: 82 Laboratory Tests 10/10/22 00:41: Creatinine 0.60, Platelet Count 284 Results/Orders Lab Results Laboratory Tests Test 10/10/22 00:34 10/10/22 00:41 Range/Units Urine Color YELLOW Urine Clarity CLEAR Urine pH 7.0 5-9 Urine Specific [place] 1.025 H 1.016-1.022 Urine Protein TRACE NEGATIVE Urine Glucose (UA) NEGATIVE NEGATIVE Urine Ketones NEGATIVE NEGATIVE Urine Nitrite NEGATIVE NEGATIVE Urine Bilirubin NEGATIVE NEGATIVE Urine Urobilinogen .2 < = 1.0 MG/DL Urine Leukocyte Esterase TRACE H NEGATIVE Urine RBC (Auto) 3+ H NEGATIVE Urine RBC 5-10 H /HPF Urine WBC RARE /HPF Urine Squamous Epithelial Cells 2-5 /HPF Urine Crystals NONE /LPF Urine Bacteria NEGATIVE /HPF Urine Casts NONE /LPF Urine Mucus MODERATE H /LPF Urine Culture Indicated NO White Blood Count 8.6 4.3-11.0 10^3/uL Red Blood Count 4.47 3.80-5.11 10^6/uL Hemoglobin 9.6 L 11.5-16.0 g/dL Hematocrit 33 L 35-52 % Mean Corpuscular Volume 73 L 80-99 fL Mean Corpuscular Hemoglobin 22 L 25-34 pg Mean Corpuscular Hemoglobin Concent 29 L 32-36 g/dL Red Cell Distribution Width 16.6 H 10.0-14.5 % Platelet Count 284 130-400 10^3/uL Mean Platelet Volume 10.1 9.0-12.2 fL Immature Granulocyte % (Auto) 0 % Neutrophils (%) (Auto) 62 42-75 % Lymphocytes (%) (Auto) 28 12-44 % Monocytes (%) (Auto) 7 0-12 % Eosinophils (%) (Auto) 2 0-10 % Basophils (%) (Auto) 1 0-10 % Neutrophils # (Auto) 5.4 1.8-7.8 10^3/uL Lymphocytes # (Auto) 2.4 1.0-4.0 10^3/uL Monocytes # (Auto) 0.6 0.0-1.0 10^3/uL Eosinophils # (Auto) 0.1 0.0-0.3 10^3/uL Basophils # (Auto) 0.0 0.0-0.1 10^3/uL Immature Granulocyte # (Auto) 0.0 0.0-0.1 10^3/uL Sodium Level 138 135-145 MMOL/L Potassium Level 3.5 L 3.6-5.0 MMOL/L Chloride Level 109 H 98-107 MMOL/L Carbon Dioxide Level 20 L 21-32 MMOL/L Anion Gap 9 5-14 MMOL/L Blood Urea Nitrogen 8 7-18 MG/DL Creatinine 0.60 0.60-1.30 MG/DL Estimat Glomerular Filtration Rate 131 BUN/Creatinine Ratio 13 Glucose Level 96 70-105 MG/DL Calcium Level 8.7 8.5-10.1 MG/DL Human Chorionic Gonadotropin, Quant 17303 H <5 MIU/ML My Orders Orders - KENDELL MATHEWS DO Ua Culture If Indicated (10/10/22 00:30) Heart Tones (10/10/22 00:30) Basic Metabolic Panel (10/10/22 00:34) Cbc With Automated Diff (10/10/22 00:34) Hcg,Quantitative (10/10/22 00:34) Us Ob<14 Wks Sngle W/Transvag (10/10/22 00:34) Vital Signs/I&O 10/10/22 8 00:27 02:52 Temp 36.5 36.4 Pulse 79 74 Resp 16 16 B/P (MAP) 116/65 (82) 118/69 Pulse Ox 100 100 O2 Delivery Room Air Room Air Capillary Refill : Less Than 3 Seconds Blood Pressure Mean: 82 Progress Note : Progress Note VITALS ON ARRIVAL: TEMP 36.5=97.7, HR 79, RR 16, BP 116/65, O2 SAT 100% ON ROOM AIR LABS: -CBC WITH WBC 8.6, HGB 9.6, PLT 284,000 -BMP UNREMARKABLE -QUANT BHCG 13,879 -BLOOD TYPE AB + -UA UNREMARKABLE ULTRASOUND PER TECH REPORT SHOWS IMPENDING MISCARRIAGE WITH EMPTY GESTATIONAL SAC / NO POLE VERY LOW AT THE CERVIX. NO EVIDENCE OF ECTOPIC. PT DID NOT USE ANY PADS DURING ER STAY VITALS STABLE, NO HYPOTENSION, NO TACHYCARDIA NO COMPLAINTS OF PAIN DURING ER STAY DISCUSSED TEST RESULTS, ANTICIPATED COURSE, SYMPTOMATIC TREATMENT, ACTIVITY RESTRICTIONS, NEED FOR FOLLOW UP AND RETURN PRECAUTIONS REVIEWED PRIOR RECORDS INCLUDING ER VISITS, ADMITS, TESTS/PROCEDURES Diagnostic Imaging Comments ULTRASOUND--PER TECH REPORT -6 WEEK SIZE GESTATIONAL SAC--EMPTY / NO POLE, SAC IS LOW AND AT THE CERVIX. NO ECTOPIC. Reviewed: Reviewed by Me Departure Impression Primary Impression: INCOMPLETE MISCARRIAGE IN EARLY Disposition: 01 HOME, SELF-CARE Condition: Stable Departure-Patient Inst. Decision time for Depature: 02:40 Ref[facility]: [facility] (PCP/Family) Primary Care Physician Patient Instructions: Dealing With Miscarriage, Miscarriage (DC) Add. Discharge Instructions: FOLLOW UP WITH DR. FORDE FOR FURTHER CARE-CALL HIS OFFICE IN THE MORNING TO MAKE AN APPOINTMENT KEEP AN ACCURATE PAD COUNT--RETURN TO ER IF SOAKING MORE THAN 1 MAXI PAD AN HOUR NOTHING IN VAGINA--NO TAMPONS, DOUCHING OR INTERCOURSE TYLENOL NEEDED FOR PAIN All discharge instructions reviewed with patient and/or family. Voiced understanding. KENDELL MATHEWS DO Oct 10, 2022 02:24
[2022-10-10 02:52] VITALS: BP 118/69
--- NOTE | 2022-10-10 05:37 | Diagnostic Imaging Report ---
EXAM: US OB<14 WKS SNGLE W/TRANSVAG INDICATION: Vaginal bleeding. Rectal quadrant abdominal pain. COMPARISON: None. FINDINGS: Normal echogenicity of the uterus which measures 8.7 x 5.5 x 6.9 cm. Right ovary measures 2.5 x 2.3 x 1.7 cm. The left ovary measures 3.2 x 1.6 x 2.3 cm. Normal flow by color Doppler in both ovaries. No adnexal mass or cyst bilaterally. Ovoid fluid collection within the endometrial canal measuring up 1.6 cm. This would correspond to a 6 week, 4 day gestational sac. This contains a possible yolk sac or debris. However, no heart tones or crown-rump length is present. No free fluid in the pelvis. IMPRESSION: 1. Probable blighted ovum. No heart rate or crown-rump length is identified. Recommend follow-up in 48 hours. 2. No adnexal mass or cyst. No free fluid in the pelvis. Dictated by: Dictated on workstation # [id number]
== END 2022-10-10 02:55 | disposition home or self-care (01) ==
LOC: EDUNIT# 00:16 → ER 00:20
DX: O03.4 Incomplete spontaneous abortion without complication (principal); Z28.310 Unvaccinated for COVID-19
CPT/HCPCS: 36415; 76801; 76817; 80048; 81000; 84702; 85025

== ENCOUNTER 2022-10-13 10:45 | Outpatient (RCR) | payer MEDICAID ==
[~2022-10-13] VITALS: Ht 157 cm; Wt 69.0 kg
[2022-10-13] MEDS ORDERED: IRON DEXTRAN 1,000 MG/NS 250 ML IVPB IV ONE ×2 (11:00)
[2022-10-13] MEDS ORDERED: IRON DEXTRAN 25 MG/NS 6.25 ML TOTAL VOLUME IV ONE ×3 (11:00)
[2022-10-13 11:09] VITALS: BP 116/68
[2022-10-13] MEDS ORDERED: HYDROCORTISONE INJECTION 100 MG/2 ML VIAL IV PRN (11:15)
[2022-10-13] MEDS ORDERED: RT-ALBUTEROL SULF 2.5 MG/3 ML PRE-MIX VIAL IH PRN (11:15)
[2022-10-13] MEDS ORDERED: diphenhydrAMINE INJ 50 MG/ML VIAL IV PRN (11:15)
[2022-10-13] MEDS ORDERED: EPINEPHrine INJECTION 1 MG/ML AMP IM PRN (11:15)
== END 2022-10-23 | disposition home or self-care (01) ==
LOC: SDC 10:45
PROVIDERS: ATTEND Obstetrics & Gynecology
DX: D64.9 Anemia, unspecified (principal)
CPT/HCPCS: 96365

== ENCOUNTER 2022-12-09 22:43 | Emergency (ER) | payer MEDICAID ==
[~2022-12-09] VITALS: Ht 157 cm; Wt 68.3 kg
[2022-12-09] MEDS ORDERED: ONDANSETRON INJECTION 4 MG/2 ML (SDV) IVP ONE (23:15)
[2022-12-09] MEDS ORDERED: LACTATED RINGERS 1,000 ML 1,000 ML IV ONE (23:15)
[2022-12-09 23:21] LABS: BASOPHILS % (AUTO) 0 % (0-10); EOSINOPHILS # (AUTO) 0.2 10^3/uL (0.0-0.3); EOSINOPHILS % (AUTO) 2 % (0-10); HEMATOCRIT 38 % (35-52); LYMPHOCYTES % (AUTO) 33 % (12-44); MEAN CORPUSCULAR HEMOGLOBIN 26 pg (25-34); MEAN CORPUSCULAR HGB CONC 31 g/dL (32-36); MEAN CORPUSCULAR VOLUME 84 fL (80-99); MEAN PLATELET VOLUME 10.2 fL (9.0-12.2); MONOCYTES # (AUTO) 0.7 10^3/uL (0.0-1.0); MONOCYTES % (AUTO) 8 % (0-12); NEUTROPHILS # (AUTO) 5.1 10^3/uL (1.8-7.8); NEUTROPHILS % (AUTO) 57 % (42-75); PLATELET COUNT 233 10^3/uL (130-400)
[2022-12-09 23:26] LABS: ALBUMIN 4.3 GM/DL (3.2-4.5)
[2022-12-09 23:27] LABS: CHLORIDE 110 MMOL/L (98-107); POTASSIUM 3.3 MMOL/L (3.6-5.0); SODIUM 141 MMOL/L (135-145)
[2022-12-09 23:28] LABS: CALCIUM 8.9 MG/DL (8.5-10.1)
[2022-12-09 23:29] LABS: GLUCOSE 102 MG/DL (70-105); TOTAL PROTEIN 7.5 GM/DL (6.4-8.2)
[2022-12-09 23:30] LABS: CARBON DIOXIDE 21 MMOL/L (21-32)
[2022-12-09 23:31] LABS: BILIRUBIN,TOTAL 0.2 MG/DL (0.1-1.0)
[2022-12-09 23:32] LABS: ALKALINE PHOSPHATASE 52 U/L (40-136)
[2022-12-09 23:33] LABS: CREATININE SERUM 0.67 MG/DL (0.60-1.30); GFR ESTIMATED 127
[2022-12-09 23:34] LABS: BACTERIA,URINE TRACE /HPF; BILIRUBIN,URINE NEGATIVE (NEGATIVE); BUN/CREATININE RATIO 13; CLARITY,URINE SLIGHTLY CLOUDY; COLOR,URINE YELLOW; GLUCOSE, URINE (UA) NEGATIVE (NEGATIVE); KETONES,URINE NEGATIVE (NEGATIVE); LEUKOCYTE ESTERASE ,URINE NEGATIVE (NEGATIVE); NITRITE,URINE NEGATIVE (NEGATIVE); PROTEIN,URINE NEGATIVE (NEGATIVE); RBC,URINE 50-100 /HPF; WBC,URINE 0-2 /HPF
[2022-12-09 23:35] LABS: AMORPHOUS SEDIMENT,UR LARGE AMOR PHOSPHATE /LPF
[2022-12-09 23:36] LABS: ALANINE AMINOTRANSFERASE 15 U/L (0-55)
[2022-12-10] MEDS ORDERED: KETOROLAC INJ 30 MG/ML VIAL IVP ONE (00:45)
[2022-12-10] MEDS ORDERED: ONDA4TAB11 SL (00:47)
--- NOTE | 2022-12-10 00:47 | ED General ---
General Chief Complaint: OB > 20 WEEKS Stated Complaint: VAG BLEEDING/BACK PAIN/DIZZY/VOMITING/MISCARRIAGE Nursing Triage Note: Patient states she was 8 weeks preg, states bleeding last month, heavy for last two days. patient states "panty" liner per hour. patient feels dizzy and light headed. following up with [facility] for levels, stats less than 5 last visit. Source of Information: Patient, Old Records Exam Limitations: No Limitations History of Present Illness Date Seen by Provider: Dec 09, 2022 Time Seen by Provider: 23:08 Initial Comments This 22 yo presents to the ER with complaints of heavy bleeding, cramping, lightheadedness and vomiting related to "miscarriage". She does not recall her LMP but review of her medical record reveals an US at 6w4d GA on 10/10/22 which demonstrated a gestational sack with no FHT which likely represents a blighted ovum. She reports an HCG level obtained after that was "5", but the last HCG on file in the hospital record was 13,879 on 10/10/22. Chart from prior deliveries reveals AB positive blood type. Allergies and Home Medications Allergies Coded Allergies: No Known Drug Allergies (Unverified , 09/08/18) Patient Home Medication List Home Medication List Reviewed: Yes Ondansetron (Ondansetron Odt) 4 Mg Tab.rapdis, 4 MG SL Q4H PRN for NAUSEA/VOMITING Prescribed by: JEFF EDWARDS on 12/10/22 0047 Review of Systems Review of Systems Constitutional: no symptoms reported EENTM: no symptoms reported Respiratory: no symptoms reported Cardiovascular: see HPI Gastrointestinal: see HPI : No Musculoskeletal: no symptoms reported Skin: no symptoms reported Psychiatric/Neurological: See HPI Hematologic/Lymphatic: No Symptoms Reported Immunological/Allergic: no symptoms reported Past Pwftcun-Ryjade-Swcgge Hx Patient Social History Tobacco Use?: No Use of E-Cig and/or Vaping dev: No Substance use?: No Alcohol Use?: No Immunizations Up To Date First/Initial COVID19 Vaccinat: NA Second COVID19 Vaccination Giovani: NA Third COVID19 Vaccination Date: NA Seasonal Allergies Seasonal Allergies: No Past Medical History Surgery/Hospitalization HX: C-SECT X2, ANEMIA Surgeries: Yes ( X 2) Section Respiratory: No Currently Using CPAP: No Currently Using BIPAP: No Cardiac: Yes ( INDUCED HTN/PRE-ECLAMPSIA) Hypertension Neurological: No Reproductive Disorders: No Genitourinary: No Gastrointestinal: No Musculoskeletal: No Endocrine: No HEENT: No Cancer: No Psychosocial: No Integumentary: No Blood Disorders: Yes (ANEMIA) Family Medical History Asthma G8 BROTHER FH: lupus G8 SISTER Hypertension 19 MOTHER X 2--2018 AND 2020 Physical Exam Vital Signs Vital Signs - First Documented 12/09/22 12/10/22 22:53 00:54 Temp 37.0 Pulse 84 Resp 18 B/P (MAP) 123/94 (104) Pulse Ox 98 O2 Delivery Room Air Capillary Refill : Less Than 3 Seconds Height, Weight, BMI Height: 5'2.00" Weight: 176lbs. 0.0oz. 79.416386iq; 27.00 BMI Method: General Appearance: WD/WN, Mild Distress HEENT: Normal ENT Inspection Neck: Normal Inspection Respiratory: Lungs Clear, Normal Breath Sounds, No Accessory Muscle Use Cardiovascular: Regular Rate, Rhythm, No Edema, No Murmur Gastrointestinal: Normal Bowel Sounds, Soft; No Distended; Tenderness (mild across the pelvis) Extremity: Normal Inspection, No Pedal Edema Neurologic/Psychiatric: Alert, Oriented x3, No Motor/Sensory Deficits, Normal Mood/Affect Skin: Normal Color, Warm/Dry Progress/Results/Core Measures Suspected Sepsis SIRS Temperature: Pulse: 84 Respiratory Rate: 18 Laboratory Tests 12/09/22 23:05: White Blood Count 9.0 Blood Pressure 123 /94 Mean: 104 Laboratory Tests 12/09/22 23:05: Creatinine 0.67, Platelet Count 233, Total Bilirubin 0.2 Results/Orders Lab Results Laboratory Tests Test 12/09/22 23:05 Range/Units White Blood Count 9.0 4.3-11.0 10^3/uL Red Blood Count 4.54 3.80-5.11 10^6/uL Hemoglobin 12.0 11.5-16.0 g/dL Hematocrit 38 35-52 % Mean Corpuscular Volume 84 80-99 fL Mean Corpuscular Hemoglobin 26 25-34 pg Mean Corpuscular Hemoglobin Concent 31 L 32-36 g/dL Red Cell Distribution Width 21.3 H 10.0-14.5 % Platelet Count 233 130-400 10^3/uL Mean Platelet Volume 10.2 9.0-12.2 fL Immature Granulocyte % (Auto) 0 % Neutrophils (%) (Auto) 57 42-75 % Lymphocytes (%) (Auto) 33 12-44 % Monocytes (%) (Auto) 8 0-12 % Eosinophils (%) (Auto) 2 0-10 % Basophils (%) (Auto) 0 0-10 % Neutrophils # (Auto) 5.1 1.8-7.8 10^3/uL Lymphocytes # (Auto) 3.0 1.0-4.0 10^3/uL Monocytes # (Auto) 0.7 0.0-1.0 10^3/uL Eosinophils # (Auto) 0.2 0.0-0.3 10^3/uL Basophils # (Auto) 0.0 0.0-0.1 10^3/uL Immature Granulocyte # (Auto) 0.0 0.0-0.1 10^3/uL Urine Color YELLOW Urine Clarity SLIGHTLY CLOUDY Urine pH 7.0 5-9 Urine Specific [place] 1.020 1.016-1.022 Urine Protein NEGATIVE NEGATIVE Urine Glucose (UA) NEGATIVE NEGATIVE Urine Ketones NEGATIVE NEGATIVE Urine Nitrite NEGATIVE NEGATIVE Urine Bilirubin NEGATIVE NEGATIVE Urine Urobilinogen 1.0 < = 1.0 MG/DL Urine Leukocyte Esterase NEGATIVE NEGATIVE Urine RBC (Auto) 3+ H NEGATIVE Urine RBC 50-100 H /HPF Urine WBC 0-2 /HPF Urine Squamous Epithelial Cells 10-25 H /HPF Urine Crystals PRESENT H /LPF Urine Amorphous Sediment LARGE CHRISTIAN PHOSPHATE H /LPF Urine Bacteria TRACE /HPF Urine Casts NONE /LPF Urine Mucus SMALL H /LPF Urine Culture Indicated NO Sodium Level 141 135-145 MMOL/L Potassium Level 3.3 L 3.6-5.0 MMOL/L Chloride Level 110 H 98-107 MMOL/L Carbon Dioxide Level 21 21-32 MMOL/L Anion Gap 10 5-14 MMOL/L Blood Urea Nitrogen 9 7-18 MG/DL Creatinine 0.67 0.60-1.30 MG/DL Estimat Glomerular Filtration Rate 127 BUN/Creatinine Ratio 13 Glucose Level 102 70-105 MG/DL Calcium Level 8.9 8.5-10.1 MG/DL Corrected Calcium 8.7 8.5-10.1 MG/DL Magnesium Level 2.0 1.6-2.4 MG/DL Total Bilirubin 0.2 0.1-1.0 MG/DL Aspartate Amino Transf (AST/SGOT) 19 5-34 U/L Alanine Aminotransferase (ALT/SGPT) 15 0-55 U/L Alkaline Phosphatase 52 40-136 U/L C-Reactive Protein High Sensitivity 0.05 0.00-0.50 MG/DL Total Protein 7.5 6.4-8.2 GM/DL Albumin 4.3 3.2-4.5 GM/DL Human Chorionic Gonadotropin, Quant < 5 <5 MIU/ML My Orders Orders - JEFF CARBAJAL MD Cbc And Automated Diff (12/09/22 23:14) Comprehensive Metabolic Panel (12/09/22 23:14) Hcg,Quantitative (12/09/22:14) Magnesium (12/09/22:14) Ed Iv/Invasive Line Start (12/09/22 23:14) Lactated Ringers 1,000 Ml (Lactated Ring (12/09/22 23:15) Ondansetron Injection (Ondansetron Inj (12/09/22:15) Hs C Reactive Protein (12/09/22 23:20) Ua Culture If Indicated (12/09/22 23:20) Ketorolac Injection (Ketorolac Injection (12/10/22 00:45) Medications Given in ED Current Medications Medications Dose Ordered Sig/Moises Route Start Time Stop Time Status Last Admin Dose Admin Ketorolac Tromethamine 30 mg ONCE ONCE IVP 12/10/22 00:45 12/10/22 00:46 DC 12/10/22 00:52 30 MG Lactated Ringer's 1,000 ml @ 0 mls/hr Q0M ONCE IV 12/09/22 23:15 12/09/22 23:17 DC 12/09/22 23:23 0 MLS/HR Ondansetron HCl 8 mg ONCE ONCE IVP 12/09/22 23:15 12/09/22 23:17 DC 12/09/22 23:22 8 MG Vital Signs/I&O 12/09/22 12/10/22 22:53 00:54 Temp 37.0 Pulse 84 68 Resp 18 18 B/P (MAP) 123/94 (104) 105/50 Pulse Ox 98 O2 Delivery Room Air Room Air Capillary Refill : Less Than 3 Seconds Blood Pressure Mean: 104 Progress Note : Progress Note Labs were reviewed and interpreted by me. CBC was normal. HCG was less than 5. She is not and not miscarrying. Symptoms were treated with Zofran and IVF. Toradol was later given for pain and headache. I discussed results with patient. Departure Impression Primary Impression: Nausea & vomiting Qualified Codes: R11.2 - Nausea with vomiting, unspecified Additional Impressions: Lightheadedness Acute headache Qualified Codes: R51.9 - Headache, unspecified Episode of heavy vaginal bleeding Disposition: HOME, SELF-CARE Condition: Improved Departure-Patient Inst. Decision time for Depature: 00:44 Referrals: [facility] [place] ([place]) Primary Care Physician Patient Instructions: Headache, Adult ED, Heavy Periods ED Add. Discharge Instructions: Drink plenty of clear liquids to stay well-hydrated. Use Zofran (ondansetron) as prescribed if you have return of nausea or vomiting. For pain you may use both Tylenol and ibuprofen. You may take Tylenol (acetaminophen) up to 1000 mg every 6 hours as needed and/or ibuprofen up to 600 mg every 6 hours as needed. Please contact Dr. FORDE's office tomorrow to discuss your pelvic cramping and bleeding. Follow-up with your primary care provider for your headache and other symptoms if needed. Return to the ER if you have worsening symptoms despite following these instructions. All discharge instructions reviewed with patient and/or family. Voiced understanding. Scripts Ondansetron (Ondansetron Odt) 4 Mg Tab.rapdis 4 MG SL Q4H PRN for NAUSEA/VOMITING, #10 TAB Prov: JEFF CARBAJAL MD 12/10/22 Copy Copies To 1: RODDY FORDE DO Copies To 2: [facility]/JEFF HOOPER MD Dec 10, 2022 00:47
[2022-12-10 00:54] VITALS: BP 105/50
== END 2022-12-10 00:55 | disposition home or self-care (01) ==
LOC: EDUNIT# 22:43 → ER 22:46
DX: O20.9 Hemorrhage in early pregnancy, unspecified (principal); O21.9 Vomiting of pregnancy, unspecified; O26.892 Other specified pregnancy related conditions, second trimester; R42 Dizziness and giddiness; R51.9 Headache, unspecified
CPT/HCPCS: 36415; 80053; 81000; 83735; 84702; 85025; 86141; 96361; 96374; 96375

== ENCOUNTER 2023-01-10 02:44 | Emergency (ER) | payer SELFPAY ==
[~2023-01-10] VITALS: Ht 157 cm; Wt 70.0 kg
[~2023-01-10 02:44] MED LIST changes: +ONDA4TAB11 SL
--- NOTE | 2023-01-10 02:55 | ED Headache ---
General Stated Complaint: MIGRAINE,RT EAR PX Source: patient Exam Limitations: no limitations History of Present Illness Date Seen by Provider: Jan 10, 2023 Time Seen by Provider: 02:54 Initial Comments Patient is a 22-year-old female who presents to the emergency room with a chief complaint of global headache/migraine that has been persistent for about a week. She has had accompanying sinus congestion, runny nose, dry cough. No reported fever. She states in the last 12 hours she has developed a right-sided earache that is severe. SHe tried to use some OTC "ear wax removal" drops that only seemed to make the earache worse. She took 2 Tylenol tablets at about 11 PM without any relief of symptoms. She states light makes her head hurt worse. She is nauseous. She started her menstrual cycle about a week ago, last Thursday. She states this is her second menstrual cycle since her miscarriage. She has had decreased appetite and nausea since the miscarriage. She takes no daily medications, does not smoke. No allergies to medications. She states she and her boyfriend got sick at about the same time. Denies dysuria, urgency frequency. No diarrhea. States that she feels "weak". Timing/Duration: other (Headache 1 week; earache 12hr) Severity/Quality: severe, pressure, throbbing Location: global Prior Headaches/Recent Trauma: occasional headaches Modifying Factors: worse with exposure to light Associated Symptoms: nausea/vomiting (nausea without vomiting), nasal congestion, weakness Allergies and Home Medications Allergies Coded Allergies: No Known Drug Allergies (Unverified , 09/08/18) Patient Home Medication List Home Medication List Reviewed: Yes Amoxicillin/Potassium Clav (Amox Tr-K Clv 875-125 mg Tab) 875 Mg-125 Mg Tablet, 1 EACH PO BID Prescribed by: KRIS WILKINSON on 01/10/23 0404 Discontinued Medications Ondansetron (Ondansetron Odt) 4 Mg Tab.rapdis, 4 MG SL Q4H PRN for NAUSEA/VOMITING Discontinued Reason: No Longer Taking Prescribed by: JEFF EDWARDS on 12/10/22 0047 Last Action: Discontinued Review of Systems Review of Systems Constitutional: see HPI Eyes: No Symptoms Reported Ears, Nose, Mouth, Throat: ear pain Respiratory: cough Cardiovascular: no symptoms reported Gastrointestinal: nausea Genitourinary: no symptoms reported LMP: Jan 04, 2023 Musculoskeletal: no symptoms reported Skin: no symptoms reported Psychiatric/Neurological: Headache All Other Systems Reviewed Negative Unless Noted: Yes Past Uqovagz-Qhykex-Xecxcs Hx Immunizations Up To Date First/Initial COVID19 Vaccinat: NA Second COVID19 Vaccination Giovani: NA Third COVID19 Vaccination Date: NA Seasonal Allergies Seasonal Allergies: No Past Medical History Surgery/Hospitalization HX: C-SECT X2, ANEMIA Surgeries: Yes ( X 2) Section Respiratory: No Currently Using CPAP: No Currently Using BIPAP: No Cardiac: Yes ( INDUCED HTN/PRE-ECLAMPSIA) Hypertension Neurological: No Reproductive Disorders: No Genitourinary: No Gastrointestinal: No Musculoskeletal: No Endocrine: No HEENT: No Cancer: No Psychosocial: No Integumentary: No Blood Disorders: Yes (ANEMIA) Family Medical History Asthma G8 BROTHER FH: lupus G8 SISTER Hypertension 19 MOTHER X 2--2018 AND 2020 Physical Exam Vital Signs Vital Signs - First Documented 01/10/23 02:52 Temp 36.0 Pulse 79 Resp 14 B/P (MAP) 136/96 (109) Pulse Ox 96 O2 Delivery Room Air Capillary Refill : Height, Weight, BMI Height: 5'2.00" Weight: 176lbs. 0.0oz. 79.471791xs; 27.00 BMI Method: General Appearance: WD/WN, other (appears tired - speaks with eyes closed) HEENT: TM abnormal (R) (distended with effusion; erythema of TM; tender to manipulation of the ear) Neck: full range of motion, supple, other (no meningismus) Cardiovascular: regular rate, rhythm Respiratory: normal breath sounds, no respiratory distress, no accessory muscle use Gastrointestinal: non tender, soft Extremities: normal range of motion, normal inspection Psychiatric: alert, oriented x 3 Crainal Nerves: normal hearing, normal speech, PERRL Coordination/Gait: normal gait Motor/Sensory: no motor deficit, no sensory deficit Skin: normal color, warm/dry Progress/Results/Core Measures Results/Orders My Orders Orders - KRIS WILKINSON MD Ondansetron Oral Dissolve Tab (Ondanset (01/10/23 03:09) Amoxicillin/Clavulanate Tablet (Amoxicil (01/10/23 03:09) Ketorolac Injection (Ketorolac Injection (01/10/23 03:15) Medications Given in ED Current Medications Medications Dose Ordered Sig/Moises Route Start Time Stop Time Status Last Admin Dose Admin Ketorolac Tromethamine 60 mg ONCE ONCE IM 01/10/23 03:15 01/10/23 03:16 DC 01/10/23 03:21 60 MG Vital Signs/I&O 01/10/23 02:52 Temp 36.0 Pulse 79 Resp 14 B/P (MAP) 136/96 (109) Pulse Ox 96 O2 Delivery Room Air Progress Progress Note : Time: 04:06 Progress Note Patient seen and evaluated by me. Evaluation today includes history and physical exam. Pertinent physical exam findings well-developed well-nourished female moderate distress due to headache and earache. HEENT exam remarkable for distended right tympanic membrane with erythema, loss of normal landmarks. Oropharynx is moist/well-hydrated, no tonsillar erythema or exudate. No cervical lymphadenopathy. No meningeal signs, negative Brudzinski sign. Heart is regular, lungs are clear, abdomen is soft. Differential diagnosis includes otitis media, meningitis, tension versus migraine headache, viral syndrome Patient is treated in the emergency department with 8 mg of ODT Zofran, 60 mg of Toradol IM and 875 mg of Augmentin. She has significant relief of her headache going from a "10" down to a "2". On reexamination she is speaking with her eyes open, interactive, alert and nontoxic in appearance. Stressed compliance with her antibiotics for the next 7 days. Encourage fluids. Also recommended iskw-yyh-ewuvfzq Zyrtec or Claritin to help decrease congestion. She verbalized understanding of plan of care, no concerning findings for meningitis. Afebrile and no meningeal signs. All questions are sought and answered. Patient is comfortable with plan of care. Improved at discharge Departure Impression Primary Impression: Headache Qualified Codes: R51.9 - Headache, unspecified Additional Impression: Otitis media Qualified Codes: H66.001 - Acute suppurative otitis media without spontaneous rupture of ear drum, right ear Disposition: 01 HOME, SELF-CARE Condition: Improved Departure-Patient Inst. Decision time for Depature: 04:03 Referrals: TEODORO MARCOS MD (PCP) Primary Care Physician [facility] (Family) Primary Care Physician Patient Instructions: Ear Infection ED, Home Headache Remedies Add. Discharge Instructions: Drink plenty of fluids to stay well-hydrated. You can take [id number]-[id number] ibuprofen 3 tablets which is 600 mg every 6 hours as needed for pain. Always take ibuprofen with food. Take the amoxicillin/clavulanic acid 875 mg twice a day for 7 days. Always take this medication with food. If you have worsening earache, fever over 101 or any other emergent, concerning symptoms please return to the emergency department for reevaluation. Scripts Amoxicillin/Potassium Clav (Amox Tr-K Clv 875-125 mg Tab) 875 Mg-125 Mg Tablet 1 EACH PO BID, #13 TAB Prov: KRIS WILKINSON MD 01/10/23 Copy Copies To 1: TEODORO MARCOS MD, KATHRYN M MD Jan 10, 2023 02:54
[2023-01-10] MEDS ORDERED: AMOXICILLIN/Clavulanate 875 MG TABLET PO STA (03:09)
[2023-01-10] MEDS ORDERED: ONDANSETRON 4 MG ORAL DISSOLVE TABLET PO STA (03:09)
[2023-01-10] MEDS ORDERED: KETOROLAC INJ 60 MG/2 ML VIAL IM ONE (03:15)
[2023-01-10] MEDS ORDERED: AMOX1TAB12 PO (04:04)
[2023-01-10 04:08] VITALS: BP 136/96
== END 2023-01-10 04:08 | disposition home or self-care (01) ==
LOC: EDUNIT# 02:44 → ER 02:48
DX: H66.91 Otitis media, unspecified, right ear (principal)
CPT/HCPCS: 96372; 99284